=== PATIENT | male | born 1950 | race Caucasian/White ===

== ENCOUNTER 2023-05-08 12:05 | Day surgery (SDC) | payer OTHER ==
[2023-05-08] VITALS (11 sets, daily range): BP systolic 125–174; BP diastolic 72–98; PULSE 63–97; RESP 10–16; TEMP 98.7; O2SAT 93–97
[~2023-05-08] VITALS: Ht 200.7 cm; Wt 129.5 kg
[2023-05-08] MEDS ORDERED: CHOL100046 PO (12:40)
[2023-05-08] MEDS ORDERED: MAGN400C PO (12:40)
[2023-05-08] MEDS ORDERED: FENO145T25 PO (12:40)
[2023-05-08] MEDS ORDERED: FLO0.4C PO (12:40)
[2023-05-08] MEDS ORDERED: METF-1203 PO (12:40)
[2023-05-08] MEDS ORDERED: TIRZ7.5P SQ (12:40)
[2023-05-08 13:15] LABS: BASOPHILS % (AUTO) 0.7 % (0-1); EOSINOPHILS # (AUTO) 0.1 X10'3 (0-0.9); EOSINOPHILS % (AUTO) 1.3 % (0-6); HEMATOCRIT 44.5 % (42.0-52.0); HEMOGLOBIN 15.2 g/dl (14.0-17.9); LYMPHOCYTES # (AUTO) 1.1 X10'3 (1.1-4.8); LYMPHOCYTES % (AUTO) 23.4 % (21-51); MEAN CORPUSCULAR HEMOGLOBIN 30.5 PG (27.0-31.0); MEAN CORPUSCULAR HGB CONC 34.2 g/dL (33.0-36.5); MEAN CORPUSCULAR VOLUME 89.3 FL (78-98); MEAN PLATELET VOLUME 8.4 FL (7.4-10.4); MONOCYTES # (AUTO) 0.5 X10'3 (0-0.9); MONOCYTES % (AUTO) 10.8 % (2-12); NEUTROPHILS # (AUTO) 3.1 X10'3 (1.8-7.7); NEUTROPHILS % (AUTO) 63.8 % (42-75); PLATELET COUNT 159 X10'3 (140-440); RED BLOOD COUNT 4.98 X10'6 (4.70-6.10); RED CELL DISTRIBUTION WIDTH 13.6 % (11.5-14.5); WHITE BLOOD COUNT 4.8 X10'3 (4.5-11.0)
[2023-05-08 13:22] LABS: PROTHROMBIN TIME 11.1 SECONDS (9.0-12.0)
[2023-05-08 13:28] LABS: ALBUMIN 4.1 G/DL (3.4-5.0); ANION GAP 8 (8-16); BLOOD UREA NITROGEN 24 MG/DL (7-18); BUN/CREATININE RATIO 20.9 (10.0-20.0); CALCIUM 9.3 MG/DL (8.5-10.1); CHLORIDE 104 MMOL/L (99-107); CHOL/HDL RATIO 5.8 (0.00-4.99); CHOLESTEROL 236 MG/DL (0-200); CREATININE 1.15 MG/DL (0.60-1.10); GLUCOSE 132 MG/DL (70-104); HDL CHOLESTEROL 41 MG/DL (35-60); LDL CHOLESTEROL 136 MG/DL (50-100); POTASSIUM 4.3 MMOL/L (3.5-5.1); SODIUM 137 MMOL/L (135-145); TOTAL CARBON DIOXIDE 25.5 MMOL/L (24-32); TRIGLYCERIDES 199 MG/DL (20-135); eCRCL 76 ML/MIN; eGFR 62 ML/MIN
[2023-05-08] MEDS: diphenhydrAMINE 25mg capsule PO PRN (13:54)
[2023-05-08] MEDS: LORazepam 0.5 MG tablet PO PRN (13:54)
[2023-05-08] MEDS: normal saline 1,000 ML IV SCH (13:55)
[2023-05-08] MEDS ORDERED: nitroGLYCERIN 500mcg/5mL D5W 5 ML IV ONE (15:38)
[2023-05-08] MEDS ORDERED: LIDOcaine 1% (10mg/ml) 2ml vial ONE (15:39)
[2023-05-08] MEDS ORDERED: verapamil 2.5 mg/ml inj IV ONE (15:39)
[2023-05-08] MEDS ORDERED: heparin 1,000unit/ml 10ml vial 10 ML ONE (15:40)
[2023-05-08] MEDS ORDERED: midazolam 1 mg/ML 2ml injection ONE (15:40)
[2023-05-08] MEDS ORDERED: iohexol 350MG/ML 100ml bottle IV ONE (15:40)
[2023-05-08] MEDS ORDERED: fentaNYL/PF 50MCG/1 ML 2ML syringe ONE (15:40)
[2023-05-08] MEDS ORDERED: LIDOcaine 1% 30ml preserv. free vial ONE (16:07)
[2023-05-08] MEDS ORDERED: HYDROcodone/acetaminophen 5mg/325mg tablet PO PRN (17:05)
[2023-05-08] MEDS ORDERED: HYDROcodone/acetaminophen 10/325mg tab PO PRN (17:05)
[2023-05-09 07:26] LABS: ISTAT HGB MIX 13.3 g/dl (14.0-17.9); ISTAT Hct MIX 39 %PCV (42-52); ISTAT O2 SATURATION MIX VENOUS 82 % (60-80); ISTAT SOURCE BLNK
[2023-05-09 07:27] LABS: ISTAT HGB MIX 14.3 g/dl (14.0-17.9); ISTAT Hct MIX 42 %PCV (42-52); ISTAT O2 SATURATION MIX VENOUS 64 % (60-80); ISTAT SOURCE BLNK
== END 2023-05-08 18:40 | disposition home or self-care (01) ==
LOC: SSTAY O 12:05
PROVIDERS: ATTEND Student in an Organized Health Care Education/Training Program
DX: I35.0 Nonrheumatic aortic (valve) stenosis (principal); I25.10 Atherosclerotic heart disease of native coronary artery without angina pectoris; E78.5 Hyperlipidemia, unspecified; E11.9 Type 2 diabetes mellitus without complications; I11.0 Hypertensive heart disease with heart failure; I50.9 Heart failure, unspecified; Z79.84 Long term (current) use of oral hypoglycemic drugs; Z79.899 Other long term (current) drug therapy
CPT/HCPCS: 36415; 80048; 80061; 82803; 82948; 85014; 85025; 85610; 93005; 93456; 99152; J1644; J2250; J3010; J3490; J7030; Q0163; Q9967; 93460; A6258; C1760; C1894

== ENCOUNTER 2023-07-20 09:47 | Outpatient (CLI) | payer BC, MEDICARE ==
[~2023-07-20 09:47] MED LIST: CHOL100046 PO; FENO145T25 PO; FLO0.4C PO; MAGN400C PO; METF-1203 PO; TIRZ7.5P SQ
[2023-07-20 10:32] LABS: BASOPHILS % (AUTO) 0.6 % (0-1); EOSINOPHILS # (AUTO) 0.1 X10'3 (0-0.9); EOSINOPHILS % (AUTO) 1.9 % (0-6); HEMATOCRIT 46.1 % (42.0-52.0); HEMOGLOBIN 15.7 g/dl (14.0-17.9); LYMPHOCYTES # (AUTO) 1.6 X10'3 (1.1-4.8); LYMPHOCYTES % (AUTO) 26.8 % (21-51); MEAN CORPUSCULAR HEMOGLOBIN 30.6 PG (27.0-31.0); MEAN CORPUSCULAR HGB CONC 34.1 g/dL (33.0-36.5); MEAN CORPUSCULAR VOLUME 89.9 FL (78-98); MEAN PLATELET VOLUME 9.2 FL (7.4-10.4); MONOCYTES # (AUTO) 0.7 X10'3 (0-0.9); MONOCYTES % (AUTO) 11.6 % (2-12); NEUTROPHILS # (AUTO) 3.6 X10'3 (1.8-7.7); NEUTROPHILS % (AUTO) 59.1 % (42-75); PLATELET COUNT 160 X10'3 (140-440); RED BLOOD COUNT 5.13 X10'6 (4.70-6.10); WHITE BLOOD COUNT 6.1 X10'3 (4.5-11.0)
[2023-07-20 10:39] LABS: APTT 27 SECONDS (22-32); PROTHROMBIN TIME 10.6 SECONDS (9.0-12.0)
[2023-07-20 10:47] LABS: ALANINE AMINOTRANSFERASE 35 U/L (12-78); ALBUMIN 4.2 G/DL (3.4-5.0); ALBUMIN/GLOBULIN RATIO 1.1 (1.1-1.5); ALKALINE PHOSPHATASE 31 IU/L (46-116); ANION GAP 9 (8-16); ASPARTATE AMINO TRANSFERASE 28 U/L (10-37); BILIRUBIN,TOTAL 0.4 MG/DL (0.1-1.0); BLOOD UREA NITROGEN 18 MG/DL (7-18); BUN/CREATININE RATIO 15.7 (10.0-20.0); CALCIUM 9.3 MG/DL (8.5-10.1); CHLORIDE 103 MMOL/L (99-107); CREATININE 1.15 MG/DL (0.60-1.10); GLUCOSE 179 MG/DL (70-104); POTASSIUM 4.6 MMOL/L (3.5-5.1); PRO BRAIN NATRIURETIC PEPTIDE 711 PG/ML (0-125); SODIUM 137 MMOL/L (135-145); TOTAL CARBON DIOXIDE 25.3 MMOL/L (24-32); TOTAL PROTEIN 8.1 G/DL (6.4-8.2); eGFR 62 ML/MIN
[2023-07-20] MEDS ORDERED: IODIXANOL 320 MG/ML INFUS..BTL 100ML IV ONE (10:49)
== END 2023-07-20 23:59 | disposition home or self-care (01) ==
LOC: RAD 09:47
PROVIDERS: ATTEND Internal Medicine Cardiovascular Disease
DX: I77.89 Other specified disorders of arteries and arterioles (principal); I35.0 Nonrheumatic aortic (valve) stenosis; R06.02 Shortness of breath; I65.29 Occlusion and stenosis of unspecified carotid artery; M47.816 Spondylosis without myelopathy or radiculopathy, lumbar region
CPT/HCPCS: 36415; 71046; 71275; 74174; 75572; 80053; 83880; 85025; 85610; 85730; J3490; Q9967